=== PATIENT | male | born 1960 | race African-American/Black ===

== ENCOUNTER 2020-11-16 18:43 | Emergency (ER) | payer OTHER, BC ==
[2020-11-16 18:56] VITALS: BP 147/89; PULSE 83; TEMP 98.2; BMI 31.6
[2020-11-16] MEDS ORDERED: ACETAMINOPHEN 325 MG TABLET (FP) PO ONE (19:24)
[2020-11-16] MEDS ORDERED: ACETAMINOPHEN 325 MG TABLET (FP) ONE (19:27)
== END 2020-11-16 20:00 | disposition home or self-care (01) ==
LOC: JER 18:43 → JERFT 18:43
DX: S43.401A Unspecified sprain of right shoulder joint, initial encounter (principal); S39.012A Strain of muscle, fascia and tendon of lower back, initial encounter; M25.562 Pain in left knee
CPT/HCPCS: 99283-25

== ENCOUNTER 2021-01-22 11:02 | Emergency (ER) | payer OTHER ==
[2021-01-22 11:18] VITALS: BP 156/88; PULSE 92; TEMP 98; BMI 29.7
[2021-01-22] MEDS ORDERED: KETOROLAC TROMETHAMINE 30 MG/1 ML VIAL IM ONE (11:38)
[2021-01-22] MEDS ORDERED: CYCLOBENZAPRINE HCL 10 MG TABLET (FP) PO ONE (11:38)
[2021-01-22] MEDS ORDERED: CYCLOBENZAPRINE HCL 10 MG TABLET (FP) ONE (11:42)
[2021-01-22] MEDS ORDERED: KETOROLAC TROMETHAMINE 30 MG/1 ML VIAL ONE (11:42)
== END 2021-01-22 12:56 | disposition home or self-care (01) ==
LOC: JERFT 11:02 → JER 11:02 → JERFT 12:56
PROC: 3E0233Z Introduction of Anti-inflammatory into Muscle, Percutaneous Approach (ICD-10-PCS; principal; 2021-01-22)
DX: R07.81 Pleurodynia (principal); M25.531 Pain in right wrist; M79.641 Pain in right hand
CPT/HCPCS: 71046-TC-FY; 71101-TC-LT-FY; 73110-TC-RT-FY; 73130-TC-RT-FY; 99285-25

== ENCOUNTER 2021-07-01 17:43 | Emergency (ER) | payer BC, OTHER ==
[2021-07-01 17:50] VITALS: TEMP 98.6; BMI 31.1
[2021-07-01] MEDS ORDERED: COLCHICINE 0.6 MG TAB PO ONE (18:45)
[2021-07-01] MEDS ORDERED: predniSONE 20 MG TABLET (UD) PO ONE (18:45)
[2021-07-01] MEDS ORDERED: predniSONE 20 MG TABLET (UD) ONE (19:06)
[2021-07-01 19:27] LABS: BASO % 1.4 % (0-2.0); EOS % 3.4 % (0-4.5); HEMOGLOBIN 13.3 GM/dL (11.7-16.9); LYMPH % 38.7 % (8-40); MCH 27.2 pg (25.7-33.7); MCHC 33.3 g/dl (32.0-35.9); MEAN CELL VOLUME 81.7 fl (80-96); MEAN PLT VOLUME 7.8 fl (7.5-11.1); MONO % 8.9 % (3.8-10.2); NEUT % 47.6 % (42.8-82.8); PLATELET COUNT 267 10^3/uL (134-434); RBC 4.89 M/mm3 (4.00-5.60); WHITE BLOOD COUNT 7.7 K/mm3 (4.0-10.0)
[2021-07-01 19:45] LABS: CHLORIDE 106 mmol/L (98-107); SODIUM 142 mmol/L (136-145)
[2021-07-01 19:47] LABS: CALCIUM 9.3 mg/dL (8.5-10.1)
[2021-07-01 19:48] LABS: CO2 28 mmol/L (21-32); GLUCOSE,RANDOM 116 mg/dL (74-106)
[2021-07-01 19:50] LABS: URIC ACID 10.1 mg/dL (2.6-7.2)
[2021-07-01 19:51] LABS: CREATININE 1.4 mg/dL (0.55-1.3); SGOT/AST 27 U/L (15-37); SGPT/ALT 37 U/L (13-61)
[2021-07-01 19:52] LABS: BILIRUBIN,TOTAL 0.3 mg/dL (0.2-1)
[2021-07-01 19:54] LABS: ALK PHOS 81 U/L (45-117)
[2021-07-01 20:07] LABS: ANION GAP 8 MMOL/L (8-16)
[2021-07-01 20:15] VITALS: BP 137/74; PULSE 93
[2021-07-01] MEDS ORDERED: POTASSIUM CHLORIDE TABS 20 MEQ TABLET.ER (FP) PO ONE ×2 (20:23→20:25)
== END 2021-07-01 21:23 | disposition home or self-care (01) ==
LOC: JERFT 17:43 → JER 17:43
DX: M10.00 Idiopathic gout, unspecified site (principal)
CPT/HCPCS: 36415; 73630-TC-RT-FY; 80053; 84550; 85025; 99284-25

== ENCOUNTER 2022-11-03 07:42 | Emergency (ER) | payer OTHER ==
[2022-11-03 07:56] VITALS: RESP 18; TEMP 98; BMI 31.6
[2022-11-03] MEDS ORDERED: amLODIPine BESYLATE 10 MG TABLET (FP) PO ONE (08:28)
[2022-11-03] MEDS ORDERED: ATORVASTATIN CA 40 MG TABLET (FP) PO ONE (08:29)
[2022-11-03] MEDS ORDERED: ACETAMINOPHEN 500 MG TABLET (FP) PO ONE (08:30)
[2022-11-03] MEDS ORDERED: ACETAMINOPHEN 325 MG TABLET (FP) ONE (08:49)
[2022-11-03] MEDS ORDERED: amLODIPine BESYLATE 10 MG TABLET (FP) ONE (08:49)
[2022-11-03] MEDS ORDERED: ATORVASTATIN CA 40 MG TABLET (FP) ONE (08:49)
[2022-11-03 09:53] VITALS: BP 177/99; PULSE 78
[2022-11-03] MEDS ORDERED: COLCHICINE 0.6 MG CAP PO ONE (09:56)
[2022-11-03] MEDS ORDERED: predniSONE 10 MG TABLET (UD) PO ONE (10:00)
[2022-11-03] MEDS ORDERED: COLCHICINE 0.6 MG TAB ONE (10:00)
[2022-11-03] MEDS ORDERED: predniSONE 10 MG TABLET (UD) ONE (10:01)
== END 2022-11-03 10:50 | disposition home or self-care (01) ==
LOC: JER 07:42
DX: M25.562 Pain in left knee (principal); M10.9 Gout, unspecified
CPT/HCPCS: 36415; 73562-TC-LT-FY; 84550; 99284-25